=== PATIENT | female | born 1965 | race Caucasian/White ===

== ENCOUNTER 2016-12-10 20:06 | Emergency (ER) | payer BC ==
[~2016-12-10] VITALS: Ht 170.2 cm; Wt 70.0 kg
[2016-12-10] MEDS ORDERED: OXYcodone/APAP 5/325MG TABLET ONE ×2 (21:24→21:56)
[2016-12-10] MEDS ORDERED: DIPH,PERTUSS(ACELL),TET VAC/PF 0.5 ML IM-VACC ONE ×2 (21:24→21:30)
[2016-12-10] MEDS ORDERED: ONDANSETRON ODT 4 MG ONE (21:24)
[2016-12-10] MEDS ORDERED: ONDANSETRON ODT 4 MG PO ONE (21:30)
[2016-12-10] MEDS ORDERED: OXYcodone/APAP 5/325MG TABLET PO ONE ×2 (21:30→22:00)
[2016-12-10] MEDS ORDERED: PREG50CA PO (21:37)
[2016-12-10 22:38] VITALS: BP 141/79
== END 2016-12-10 22:40 | disposition home or self-care (01) ==
LOC: ED 22:27
DX: S06.0X1A Concussion with loss of consciousness of 30 minutes or less, initial encounter (principal); S01.81XA Laceration without foreign body of other part of head, initial encounter; S16.1XXA Strain of muscle, fascia and tendon at neck level, initial encounter; S40.012A Contusion of left shoulder, initial encounter; S50.02XA Contusion of left elbow, initial encounter; W01.0XXA Fall on same level from slipping, tripping and stumbling without subsequent striking against object, initial encounter; Y93.89 Activity, other specified; Y99.8 Other external cause status; Y92.009 Unspecified place in unspecified non-institutional (private) residence as the place of occurrence of the external cause
CPT/HCPCS: 12052; 70450; 70486; 72125; 73030; 73080; 90471; 90715; 93005; 99284; Q0162

== ENCOUNTER → 2017-10-07 | Outpatient (CLI) | payer OTHER ==
[~2017-10-07] MED LIST: OMNIPAQUE 350 MG/ML, 100ML BOTTLE ONE; PREG50CA PO
== END | disposition home or self-care (01) ==
LOC: RAD 16:44
PROVIDERS: ATTEND Family Medicine
DX: R63.4 Abnormal weight loss (principal); R19.7 Diarrhea, unspecified; R11.2 Nausea with vomiting, unspecified
CPT/HCPCS: 74178; Q9967